=== PATIENT | male | born 2000 | race Caucasian/White ===

== ENCOUNTER 2020-09-16 17:28 | Emergency (ER) | payer BC, OTHER ==
[~2020-09-16] VITALS: Ht 167.6 cm; Wt 122.7 kg
[~2020-09-16 17:28] MED LIST: MELO7.5T29 PO; ONDA4TAB12 PO; ORPH-16 PO
[2020-09-16] MEDS ORDERED: CYCL-331 PO (17:53)
[2020-09-16] MEDS ORDERED: NAPR-514 PO (17:53)
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
[2020-09-16 18:20] VITALS: BP 133/74
== END 2020-09-16 18:20 | disposition home or self-care (01) ==
LOC: ER 17:28
DX: S16.1XXA Strain of muscle, fascia and tendon at neck level, initial encounter (principal); S46.811A Strain of other muscles, fascia and tendons at shoulder and upper arm level, right arm, initial encounter; V43.62XA Car passenger injured in collision with other type car in traffic accident, initial encounter; Y93.89 Activity, other specified; Y92.410 Unspecified street and highway as the place of occurrence of the external cause; Y99.8 Other external cause status
CPT/HCPCS: 99283

== ENCOUNTER → 2020-09-30 | Outpatient (CLI) | payer OTHER ==
[2020-09-16 18:20] VITALS: BP 133/74
[~2020-09-30] MED LIST changes: +CYCL-331 PO; +NAPR-514 PO
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
== END ==
LOC: PMG 14:59
PROVIDERS: ATTEND Physician Assistant
DX: R07.82 Intercostal pain (principal); M40.40 Postural lordosis, site unspecified
CPT/HCPCS: 71101; 72050

== ENCOUNTER 2021-08-16 20:23 | Emergency (ER) | payer BC, OTHER ==
[~2021-08-16] VITALS: Ht 175.3 cm; Wt 141.0 kg
[~2021-08-16 20:23] MED LIST changes: -CYCL-331 PO; +CYCL10TA19 PO
[2021-08-16 21:41] VITALS: BP 131/98
--- NOTE | 2021-08-16 22:22 | PHYS DOC ---
Past History Past Medical History: GERD, Hypertension, UTI Past Surgical History: Tonsillectomy Smoking: Non-smoker Alcohol Use: None Drug Use: None General Adult EDM: Chief Complaint: BLOOD IN URINE HPI: HPI: ".. I think .. I got blood in my urine...but I have had a urinary tract infection in the past... " Patient is a 21 year old male who presents with dysuria and hematuria. Patient states he noted symptoms in the last couple days. Patient denies any trauma. Patient denies any history of STDs. Patient has only 1 lifetime sex partner. Patient sex partner denies any symptoms. Patient is noncircumcised male. Testicles descended. No pus or blood coming from meatus. No history immunosup pression. No history of travel. Denies significant ill contacts. Has not gotten Covid vaccination has not gotten flu vaccination, Review of Systems: Review of Systems: Constitutional: Denies fever or chills Eyes: Denies change in visual acuity HENT: Denies nasal congestion or sore throat Respiratory: Denies cough or shortness of breath Cardiovascular: Denies chest pain or edema GI: Denies abdominal pain, nausea, vomiting, bloody stools or diarrhea : Complains of dysuria Musculoskeletal: Denies back pain or joint pain Integument: Denies rash Neurologic: Denies headache, focal weakness or sensory changes Endocrine: Denies polyuria or polydipsia Lymphatic: Denies swollen glands Psychiatric: Denies depression or anxiety Family History: Family History: Noncontributory to presentation. Current Medications: Current Meds: Current Medications Medications (Trade) Dose Ordered Sig/[facility] Start Time Stop Time Status Last Admin Dose Admin Ketorolac Tromethamine (Toradol 15mg Vial) 15 mg 1X ONCE 08/16/21 22:30 08/16/21 22:31 Sodium Chloride 1,000 ml @ 1,000 mls/hr 1X ONCE 08/16/21 22:30 08/16/21 23:29 Allergies: Allergies: Allergies Coded Allergies Type Severity Reaction Last Updated Verified No Known Drug Allergies 09/16/20 No Physical Exam: PE: Constitutional: Moderate acute distress, non-toxic appearance. [] HENT: Normocephalic, atraumatic, bilateral external ears normal, oropharynx moist, no oral exudates, nose normal. [] Eyes: PERRLA, EOMI, conjunctiva normal, no discharge. Glasses Neck: Normal range of motion, no tenderness, supple, no stridor. [] Cardiovascular:Heart rate regular rhythm, no murmur [] Lungs & Thorax: Bilateral breath sounds equal at apex on auscultation [] Abdomen: Bowel sounds normal, soft, no tenderness, no masses, no pulsatile masses. Obese. Noncircumcised male. No pus coming from meatus. Testicles descended. Skin: Warm, dry, no erythema, no rash. [] Back: No tenderness, no CVA tenderness. [] Extremities: No tenderness, no cyanosis, no clubbing, ROM intact, no edema. [] Neurologic: Alert and oriented X 3, normal motor function, normal sensory function, no focal deficits noted. [] Psychologic: Affect anxious, judgement normal, mood normal. [] Current Patient Data: Vital Signs: Vital Signs Date Time Temp Pulse Resp B/P (MAP) Pulse Ox O2 Delivery O2 Flow Rate FiO2 08/16/21 21:41 98.8 100 18 131/98 (109) 98 Room Air EKG: EKG: [] Radiology/Procedures: Radiology/Procedures: [] Heart Score: C/O Chest Pain: N/A Risk Factors: Risk Factors: DM, Current or recent (<one month) smoker, HTN, HLP, family history of CAD, obesity. Risk Scores: Score 0 - 3: 2.5% MACE over next 6 weeks - Discharge Home Score 4 - 6: 20.3% MACE over next 6 weeks - Admit for Clinical Observation Score 7 - 10: 72.7% MACE over next 6 weeks - Early Invasive Strategies Course & Med Decision Making: Course & Med Decision Making Pertinent Labs and Imaging studies reviewed. (See chart for details) Patient follow-up urine culture. Patient push fluids. Patient push vitamin C drinks. Patient take Bactrim DS twice a day. After completing 7 days of Bactrim take Diflucan 100 mg daily for 3 days. Follow-up primary care. Return if any concerns. Impression; 1. Dysuria 2. Urinary tract infection 3. Mild Leukocytosis 12,7 [] Dragon Disclaimer: Dragon Disclaimer: This electronic medical record was generated, in whole or in part, using a voice recognition dictation system. Departure Departure: Referrals: JIMBO CALDWELL (PCP) Scripts Fluconazole (DIFLUCAN) 100 Mg Tablet 100 MG PO DAILY for post antibiotic for 3 Days, #3 TAB Prov: IDA RODRÍGUEZ MD 08/17/21 Cephalexin (KEFLEX) 500 Mg Capsule 500 MG PO TID for uti for 7 Days, #21 CAP Prov: IDA RODRÍGUEZ MD 08/17/21 Dragon Disclaimer This chart was dictated in whole or in part using Voice Recognition software in a busy, high-work load, and often noisy Emergency Department environment. It may contain unintended and wholly unrecognized errors or omissions. IDA RODRÍGUEZ MD Aug 16, 2021 22:22
[2021-08-16] MEDS ORDERED: KETOROLAC 15 MG/ML VIAL. IVP ONE (22:30)
[2021-08-16] MEDS ORDERED: IV NORMAL SALINE 1,000ML 1,000 ML IV ONE (22:30)
--- NOTE | 2021-08-16 22:48 | RAD ---
Exam: CT of abdomen and pelvis without contrast INDICATION: Abdominal pain TECHNIQUE: Sequential axial images through the abdomen and pelvis obtained without IV contrast. Sagit aurora and coronal reformatted images were reconstructed from the axial data and reviewed. Exposure: One or more of the following in the visualized dose reduction techniques were utilized for this examination: 1. Automated exposure control 2. Adjustment of the MA and/or KV according to patient size 3. Use of iterative of reconstructive technique Comparisons: None FINDINGS: Heart size is normal. No pericardial visualized lung bases are clear. Evaluation solid organs limited secondary to noncontrast technique. Diffuse hepatic steatosis. Spleen, pancreas, gallbladder and adrenals are unremarkable. No perinephric inflammation or hydronephrosis. No renal or ureteral calculi are identified. Bladder is decompressed not well evaluated. Prostate is not enlarged. Large and small bowel are unremarkable. Appendix is measuring at the upper limits of normal in size w ithout adjacent inflammatory changes. No free intra-abdominal air or fluid. No obstruction. Abdominal aorta has normal course and caliber. No enlarged intra-abdominal lymph nodes are identified. No suspicious osseous lesions or acute fractures. IMPRESSION: 1. Appendix is at the upper limits of normal in size without adjacent inflammatory changes. Findings are nonspecific however could relate to a early appendicitis. Correlate with symptomatology. 2. Diffuse hepatic steatosis. Electronically signed by: Trevor Miller MD (08/16/2021 10:45 PM) [facility]
[2021-08-17 00:01] LABS: CLARITY,URINE CLEAR; COLOR,URINE ORANGE
[2021-08-17 00:02] LABS: BACTERIA,URINE MOD /HPF (0-FEW); BILIRUBIN,URINE SMALL (NEG); GLUCOSE,URINE 100 mg/dL (NEG); NITRITE,URINE POS (NEG); SQUAMOUS EPITHELIAL CELL,UR MOD /LPF
[2021-08-17] MEDS ORDERED: CEPH500C PO (00:37)
[2021-08-17] MEDS ORDERED: FLUC100T7 PO (00:37)
[2021-08-17 00:42] LABS: BASO # 0.1 x10^3/uL (0.0-0.2); BASO % 1 % (0-3); EOS # 0.3 x10^3/uL (0.0-0.7); EOS % 3 % (0-3); HEMATOCRIT 42.3 % (39.0-53.0); HEMOGLOBIN 14.2 g/dL (13.0-17.5); LYMPH # 4.5 x10^3/uL (1.0-4.8); LYMPH % 36 % (24-48); MEAN CORPUSCULAR HEMOGLOBIN 29 pg (25-35); MEAN CORPUSCULAR HGB CONC 34 g/dL (31-37); MEAN CORPUSCULAR VOLUME 88 fL (79-100); MONO # 1.4 x10^3/uL (0.0-1.1); MONO % 11 % (0-9); NEUT # 6.3 x10^3uL (1.8-7.7); NEUT % 50 % (31-73); PLATELET COUNT 385 x10^3/uL (140-400); RED BLOOD COUNT 4.82 x10^6/uL (4.30-5.70); WHITE BLOOD COUNT 12.7 x10^3/uL (4.0-11.0)
[2021-08-17] MEDS ORDERED: IV NORMAL SALINE 50ML 50 ML ONE (00:46)
[2021-08-17] MEDS ORDERED: cefTRIAXone SODIUM 1 GM VIAL ONE (00:47)
[2021-08-17 00:55] LABS: CALCIUM 9.3 mg/dL (8.5-10.1); GFR 94.3
[2021-08-17] MEDS ORDERED: PHENAZOPYRIDINE 200 MG TABLET. PO ONE (01:00)
[2021-08-17 01:02] LABS: ALBUMIN 3.7 g/dL (3.4-5.0); ALBUMIN/GLOBULIN RATIO 1.1 (1.0-1.7); TOTAL BILIRUBIN 0.4 mg/dL (0.2-1.0)
== END 2021-08-17 01:20 | disposition home or self-care (01) ==
LOC: ER 20:23
DX: N39.0 Urinary tract infection, site not specified (principal); D72.829 Elevated white blood cell count, unspecified; K21.9 Gastro-esophageal reflux disease without esophagitis; I10 Essential (primary) hypertension; Z87.440 Personal history of urinary (tract) infections
CPT/HCPCS: 36415; 74176; 80053; 81001; 85025; 87086; 87491; 87591; 96361; 96365; 96375; 99284; J0696; J1885; J7030